=== PATIENT | female | born 1995 | race African-American/Black ===

== ENCOUNTER 2018-06-28 11:35 | Emergency (ER) | payer BC, SELFPAY ==
[2018-06-28 12:47] LABS: Absolute Lymphocytes (CBC) 1.1 K/uL (0.7-4.9); Absolute Neutrophil 16.5 K/uL (1.8-8.0); Basophils % 0.3 % (0-1.3); Eosinophils % 0.1 % (0-4.4); Hematocrit 43.2 % (36.0-45.0); Lymphocytes % 5.8 % (15.3-44.8); MPV 9.7 fL (7.6-11.3); Monocytes % 5.5 % (3.3-12.3); RBC Red Blood Cell Count 4.67 M/uL (3.86-4.86)
[2018-06-28] MEDS ORDERED: NA CHLORIDE 0.9% 1,000 ML ONE ×2 (12:48→16:08)
[2018-06-28] MEDS ORDERED: DEXAMETHASONE 4 MG/ML VIAL ONE (12:48)
[2018-06-28 12:54] LABS: Potassium 3.6 mmol/L (3.5-5.1)
[2018-06-28 13:10] LABS: Blood Morphology Comment NOT SEEN (NOT SEEN); Platelet Estimate ADEQ
[2018-06-28] MEDS ORDERED: IBUPROFEN 200 MG TAB PO ONE (13:30)
--- NOTE | 2018-06-28 13:39 | RAD REPORT ---
EXAM DESCRIPTION: CT - Soft Tissue Neck W/Contr - 06/28/2018 1:07 pm CLINICAL HISTORY: Sore throat, neck pain TECHNIQUE: During dynamic enhancement using 100 milliliters nonionic IV contrast, axial 5 millimeter thick images of the neck were obtained. All CT scans are performed using dose optimization technique as appropriate and may include automated exposure control or mA/KV adjustment according to patient size. FINDINGS: Intracranial portion the examination is unremarkable. No globe or orbital content abnormal ity. Mastoid air cells and paranasal sinuses are clear. Adenoid tissue is prominent but without focal abnormality. Left tonsil is not outside of normal range . Right tonsil is abnormal. There is edema and enlargement of the right tonsil involves the right-side of the soft palate. In the deep lateral margin of the tonsil there is a 13 millimeter oval low-densit y mass collection. Posteriorly and inferiorly in the enlarged right tonsil there are 13 millimeter an d 18 millimeter round low-density collections. These 3 collections are likely part of a single large a amorphous shaped collection. Soft tissue edema and enlargement of the tonsil extends inferiorly into the right valleculae and piri form sinus. There is enlargement and edema of the right-side epiglottis. There is soft tissue swellin g M edema that continues inferiorly to abut the right-side of the vocal cords. No airway compromise. No focal tongue base abnormality. Enlarged bilateral reactive cervical lymph nodes are present 2 cm in size. The parotid, submandibular and thyroid gland tissue show no acute findings. No vascular or bone acute finding. IMPRESSION: Large complex right peritonsillar abscess. Multiple abscess collections are present in t he deep lateral right tonsil 13 mm in size and in the posterior inferior tonsil 13 mm and 18 mm in si ze. These are part of an amorphous shaped contiguous abscess. Soft tissue swelling and edema throughout the right-side pharynx that extends from the soft palate to the right-side vocal cord. Epiglottis is involved. Enlarged bilateral cervical lymphadenopathy. No lymph node abscess. No airway compromise.
[2018-06-28] MEDS ORDERED: CLINDAMYCIN 900MG/D5W 900 MG/50 ML IVPB IV ONE (13:57)
[2018-06-28] MEDS ORDERED: CEFTRIAXONE/SWI 1gm 1 GM/10 ML SYR ONE (13:57)
[2018-06-28] MEDS ORDERED: MORPHINE 4 MG/ML SYR ONE ×2 (14:07→16:08)
[2018-06-28] MEDS ORDERED: ONDANSETRON 4 MG/2 ML VIAL ONE (14:08)
[2018-06-28 14:26] LABS: Urine Blood NEGATIVE (NEG); Urine Glucose NEGATIVE (NEG); Urine Protein 2+ (NEG); Urine pH 5.5 (5.0-7.0)
--- NOTE | 2018-06-28 14:32 | ER ---
Nurse's Notes [facility] Name: Ellen Alves Age: 22 yrs Sex: Female : 1995 Arrival Date: 06/28/2018 Time: 11:38 Bed 23 Private MD: Diagnosis: Peritonsillar abscess;Influenza due to certain identified influenza viruses Presentation: 06/28 11:43 Presenting complaint: Patient states: flu like symptoms since Saturday. c/o earache, ch sore throat, cant drink or eat. Transition of care: patient was not received from another setting of care. Onset of symptoms was June 25, 2018. Risk Assessment: Do you want to hurt yourself or someone else? Patient reports no desire to harm self or others. Initial Sepsis Screen: Does the patient meet any 2 criteria? No. Patient's initial sepsis screen is negative. Does the patient have a suspected source of infection? No. Patient's initial sepsis screen is negative. Note urgent care gave antibiotic shot and lido to gargle for pain yesterday. Care prior to arrival: None. 11:43 Method Of Arrival: Ambulatory 11:43 Acuity: JEAN 4 ch Triage Assessment: 11:44 General: Appears in no apparent distress. uncomfortable, Behavior is calm, cooperative, ch appropriate for age. Pain: Complains of pain in right ear and throat Pain currently is 10 out of 10 on a pain scale. EENT: Oral mucosa is moist. Throat is reddened has enlarged tonsils bilaterally with gag reflex present, Reports difficulty swallowing nasal congestion nasal discharge pain when swallowing since in ear. Respiratory: Airway is patent Trachea Respiratory effort is even, unlabored. Historical: - Allergies: 11:44 No Known Allergies; ch - PMHx: 11:44 None; ch - PSHx: 11:44 None; ch - Immunization history:: Adult Immunizations up to date, Flu vaccine is not up to date. - Social history:: Smoking status: Patient/guardian denies using tobacco, Patient uses alcohol, weekly. Patient/guardian denies using street drugs. - Ebola Screening: : Patient negative for fever greater than or equal to 101.5 degrees Fahrenheit, and additional compatible Ebola Virus Disease symptoms Patient denies exposure to infectious person Patient denies travel to an Ebola-affected area in the 21 days before illness onset No symptoms or risks identified at this time. Screenin:23 Abuse screen: Denies threats or abuse. Denies injuries from another. Nutritional ss screening: No deficits noted. Tuberculosis screening: No symptoms or risk factors identified. Never had TB. Fall Risk None identified. Assessment: 11:55 General: Appears uncomfortable, ill, Behavior is calm, cooperative, quiet, Reports ss chills for 2-3 days, fever for 2-3 days, feeling ill for 2-3 days, fatigue for 2-3 days. Pain: Complains of pain in right ear and throat Pain currently is 10 out of 10 on a pain scale. Quality of pain is described as burning, tender, Pain began 2-3 days ago. Is continuous. Neuro: Level of Consciousness is awake, alert, obeys commands, Oriented to person, place, time, situation. Cardiovascular: Capillary refill < 3 seconds is brisk in bilateral fingers. Respiratory: Airway is patent Respiratory effort is even, unlabored, Respiratory pattern is regular, symmetrical. GI: Patient currently denies abdominal pain, diarrhea, nausea, vomiting. : No signs and/or symptoms were reported regarding the genitourinary system. EENT: Nares are clear Oral mucosa is moist. Throat is reddened has enlarged tonsils on right. Derm: Skin is intact, is healthy with good turgor, Skin is dry, Skin is pink, warm \T\ dry. normal. Musculoskeletal: Circulation, motion, and sensation intact. Range of motion: intact in all extremities. 13:20 Reassessment: Patient appears in no apparent distress at this time. No changes from ss previously documented assessment. Pt reports increase in chills, temperature rechecked. Motrin ordered and administered. 15:42 Reassessment: Patient appears in no apparent distress at this time. Patient and/or ss family updated on plan of care and expected duration. Pain level reassessed. Patient is alert, oriented x 3, equal unlabored respirations, skin warm/dry/pink. Patient states feeling better. Patient states symptoms have improved. 15:48 Reassessment: awaiting room assignment from receiving facility. ss 16:15 Reassessment: attempted to call report to receiving facility. Staff reports that they ss will call back as they are unable to reach receiving nurse. 18:13 Reassessment: Patient appears in no apparent distress at this time. No changes from la1 previously documented assessment. Patient and/or family updated on plan of care and expected duration. Pain level reassessed. Patient is alert, oriented x 3, equal unlabored respirations, skin warm/dry/pink. Vital Signs: 11:44 BP 124 / 86; Pulse 102; Resp 16; Temp 99.7; Pulse Ox 99% on R/A; Weight 78.02 kg; ch Height 5 ft. 6 in. (167.64 cm); Pain 10/10; 13:19 Temp 100.6(O); lt1 16:03 BP 102 / 64; Pulse 86; Resp 18; Pulse Ox 98% on R/A; la1 16:16 Temp 98.5(O); ss 16:16 Pain 10/10; ss 18:13 BP 104 / 67; Pulse 72; Resp 18; Pulse Ox 98% on R/A; la1 11:44 Body Mass Index 27.76 (78.02 kg, 167.64 cm) ch 16:16 pt reports her throat is still 10/10, but reports other pain such as her ears do not ss hurt at all anymore. Additional dose of morphine ordered and administered. ED Course: 11:38 Patient arrived in ED. as 11:39 Michelle Alves FNP-C is PHCP. kb 11:39 Osiel Gómez MD is Attending Physician. kb 11:44 Triage completed. ch 11:44 Arm band placed on left wrist. Patient placed in waiting room. ch 11:52 Jessica Perales, RN is Primary Nurse. ss 12:20 Radiology exam delayed due to test not completed at this time. IV insertion bq attempt and/or patient not having appropriate IV at this time. 12:20 Note: JESSICA TO NOTIFY CT WHEN PTS READY. bq 12:35 Inserted saline lock: 22 gauge in left wrist, using aseptic technique. Patient ss maintains SpO2 saturation greater than 95% on room air. 13:07 CT Soft Tissue Neck W/contr In Process Unspecified. EDMS 13:07 CT completed. Patient tolerated procedure well. Patient moved back from CT. kw1 13:23 Patient has correct armband on for positive identification. Bed in low position. Call ss light in reach. 13:54 initiated a transfer with Shira at the [facility] transfer center. eb 14:[address] Thomas the ENT manager marketing communications for [facility] with Michelle CARRERA for patient eb transfer consultation. 14:[address] Byrd the Hospitalist manager marketing communications with Michelle CARRERA for patient transfer eb consultation. 14:37 Shira from [facility] called to let us know that they are moving patients around so eb this patient can have an isolation room/ once she gets the room assignment she will call with admin approval. 16:02 administrative approval given by Shira Jean, Jaun Gastelum has accepted the eb patient in transfer/ patient going to [address] [place] [address]/ report to be called to [phone]. 18:14 No provider procedures requiring assistance completed. Patient transferred, IV remains la1 in place. Administered Medications: 12:47 Drug: Decadron - Dexamethasone 10 mg Route: IVP; Site: left antecubital; ss 13:20 Follow up: Response: No adverse reaction ss 12:48 Drug: NS 0.9% 1000 ml Route: IV; Rate: 1000 ml; Site: left wrist; ss 14:00 Follow up: IV Status: Completed infusion ss 13:25 Drug: Motrin 600 mg Route: PO; ss 14:04 Follow up: Response: No adverse reaction la1 13:40 Drug: Rocephin 1 grams Route: IV; Rate: calculated rate; Site: left antecubital; la1 14:05 Follow up: IV Status: Completed infusion la1 14:01 Drug: Clindamycin 900 mg Route: IVPB; Infused Over: 30 mins; Site: left antecubital; la1 14:26 Follow up: IV Status: Completed infusion la1 14:01 Drug: morphine 4 mg Route: IVP; Site: left antecubital; la1 14:05 Follow up: Response: No adverse reaction; Pain is decreased la1 14:01 Drug: Zofran 4 mg Route: IVP; Site: left antecubital; la1 14:05 Follow up: Response: No adverse reaction la1 16:02 Drug: NS 0.9% 1000 ml Route: IV; Rate: 125 ml/hr; Site: left antecubital; la1 18:13 Follow up: IV Status: Infusion continued upon transfer la1 16:02 Drug: morphine 4 mg Route: IVP; Site: left antecubital; la1 18:14 Follow up: Response: No adverse reaction; Pain is decreased la1 Outcome: 14:31 ER care complete, transfer ordered by MD. hunter 18:14 Transferred by ground EMS to [facility], [facility], Transfer form completed. la1 18:14 Condition: stable 18:14 Instructed on the need for transfer. 18:14 Patient left the ED. la1 Signatures: Dispatcher [employer] EDMS Michelle Alves, MANAGER OF ORGANIZATIONAL DEVELOPMENT-C MANAGER OF ORGANIZATIONAL DEVELOPMENT-Marlen Strong, RN RN Grecia Reddy Amelia as Smirch, Shelby, RN RN Juan Hassan RN RN la1 Ashlyn Ortiz Elizabeth eb Tran, Leah [facility] Corrections: (The following items were deleted from the chart) 13:23 11:55 General: Appears uncomfortable, ill, Behavior is calm, cooperative, quiet, ss
--- NOTE | 2018-06-28 14:32 | EDPHYS ---
Physician Documentation [facility] Name: Ellen Alves Age: 22 yrs Sex: Female : 1995 Arrival Date: 06/28/2018 Time: 11:38 Bed 23 Private MD: ED Physician Osiel Gómez HPI: 06/28 12:15 This 22 yrs old Black Female presents to ER via Ambulatory with complaints of Ear Pain, kb Sore Throat. 12:16 The patient presents with sore throat. The patient describes throat pain as constant. kb Onset: The symptoms/episode began/occurred 5 day(s) ago. Severity of symptoms: At their worst the symptoms were moderate, in the emergency department the symptoms are unchanged. Modifying factors: The symptoms are alleviated by nothing, the symptoms are aggravated by swallowing, Patient's oral intake status: limited fluid intake, limited food intake. Associated signs and symptoms: Pertinent positives: earache, fever, Sore throat. The patient has not experienced similar symptoms in the past. The patient has been recently seen at an urgent care, yesterday. Pt reports sore throat, right ear pain and fever. Went to yesterday, tested negative for flu and strep, was told she either had the mumps or pharyngitis and was given a shot of antibiotics. . Historical: - Allergies: 11:44 No Known Allergies; ch - PMHx: 11:44 None; ch - PSHx: 11:44 None; ch - Immunization history:: Adult Immunizations up to date, Flu vaccine is not up to date. - Social history:: Smoking status: Patient/guardian denies using tobacco, Patient uses alcohol, weekly. Patient/guardian denies using street drugs. - Ebola Screening: : Patient negative for fever greater than or equal to 101.5 degrees Fahrenheit, and additional compatible Ebola Virus Disease symptoms Patient denies exposure to infectious person Patient denies travel to an Ebola-affected area in the 21 days before illness onset No symptoms or risks identified at this time. ROS: 12:11 Neck: Negative for injury, pain, and swelling, Cardiovascular: Negative for chest pain, kb palpitations, and edema, Respiratory: Negative for shortness of breath, cough, wheezing, and pleuritic chest pain, Abdomen/GI: Negative for abdominal pain, nausea, vomiting, diarrhea, and constipation, MS/Extremity: Negative for injury and deformity, Skin: Negative for injury, rash, and discoloration, Neuro: Negative for headache, weakness, numbness, tingling, and seizure. 12:11 Constitutional: Positive for fever, Negative for body aches, chills, fatigue, malaise, poor PO intake, weight loss. 12:11 ENT: Positive for ear pain, sore throat. Exam: 12:12 Constitutional: This is a well developed, well nourished patient who is awake, alert, kb and in no acute distress. Head/Face: Normocephalic, atraumatic. Neck: Trachea midline, no thyromegaly or masses palpated, and no cervical lymphadenopathy. Supple, full range of motion without nuchal rigidity, or vertebral point tenderness. No Meningismus. Chest/axilla: Normal chest wall appearance and motion. Nontender with no deformity. No lesions are appreciated. Cardiovascular: Regular rate and rhythm with a normal S1 and S2. No gallops, murmurs, or rubs. Normal PMI, no JVD. No pulse deficits. Respiratory: Lungs have equal breath sounds bilaterally, clear to auscultation and percussion. No rales, rhonchi or wheezes noted. No increased work of breathing, no retractions or nasal flaring. Abdomen/GI: Soft, non-tender, with normal bowel sounds. No distension or tympany. No guarding or rebound. No evidence of tenderness throughout. Skin: Warm, dry with normal turgor. Normal color with no rashes, no lesions, and no evidence of cellulitis. MS/ Extremity: Pulses equal, no cyanosis. Neurovascular intact. Full, normal range of motion. Neuro: Awake and alert, GCS 15, oriented to person, place, time, and situation. Cranial nerves II-XII grossly intact. Motor strength 5/5 in all extremities. Sensory grossly intact. Cerebellar exam normal. Normal gait. 12:12 ENT: External ear(s): are unremarkable, Ear canal(s): are normal, TM's: fluid levels, on the left, Nose: is normal, Mouth: is normal, Posterior pharynx: Airway: normal, no evidence of obstruction, Tonsils: enlarged on the right, with erythema, Uvula: normal, midline, swelling, that is moderate, erythema, that is marked, slight trismus . Vital Signs: 11:44 BP 124 / 86; Pulse 102; Resp 16; Temp 99.7; Pulse Ox 99% on R/A; Weight 78.02 kg; ch Height 5 ft. 6 in. (167.64 cm); Pain 10/10; 13:19 Temp 100.6(O); lt1 16:03 BP 102 / 64; Pulse 86; Resp 18; Pulse Ox 98% on R/A; la1 16:16 Temp 98.5(O); ss 16:16 Pain 10/10; ss 18:13 BP 104 / 67; Pulse 72; Resp 18; Pulse Ox 98% on R/A; la1 11:44 Body Mass Index 27.76 (78.02 kg, 167.64 cm) ch 16:16 pt reports her throat is still 10/10, but reports other pain such as her ears do not ss hurt at all anymore. Additional dose of morphine ordered and administered. MDM: 11:47 Patient medically screened. [facility] 12:12 Data reviewed: vital signs, nurses notes. Data interpreted: Pulse oximetry: on room air kb is 99 %. Interpretation: normal. 13:45 Counseling: I had a detailed discussion with the patient and/or guardian regarding: the kb historical points, exam findings, and any diagnostic results supporting the discharge/admit diagnosis, lab results, radiology results, the need to transfer to another facility, [facility] does not immediately have the required specialist. 14:31 ED course: Pt accepted by Dr Thomas, ENT, and Dr Byrd, hospitalist, at [facility]. kb 06/28 11:43 Order name: Flu; Complete Time: 12:21 ch 06/28 11:43 Order name: Strep; Complete Time: 12:21 ch 06/28 12:04 Order name: CBC with Diff; Complete Time: 13:11 kb 06/28 12:04 Order name: Basic Metabolic Panel; Complete Time: 12:56 kb 06/28 12:04 Order name: [place] Screen Profile; Complete Time: 12:53 kb 06/28 12:20 Order name: Throat Culture EDMS 06/28 12:04 Order name: CT Soft Tissue Neck W/contr; Complete Time: 13:40 kb 06/28 12:59 Order name: Urine Dipstick--Ancillary (enter results); Complete Time: 14:28 eb 06/28 12:59 Order name: Urine --Ancillary (enter results); Complete Time: 14:28 eb 06/28 13:10 Order name: Manual Differential; Complete Time: 13:11 EDMS 06/28 12:04 Order name: IV Start; Complete Time: 12:35 kb Administered Medications: 12:47 Drug: Decadron - Dexamethasone 10 mg Route: IVP; Site: left antecubital; ss 13:20 Follow up: Response: No adverse reaction ss 12:48 Drug: NS 0.9% 1000 ml Route: IV; Rate: 1000 ml; Site: left wrist; ss 14:00 Follow up: IV Status: Completed infusion ss 13:25 Drug: Motrin 600 mg Route: PO; ss 14:04 Follow up: Response: No adverse reaction la1 13:40 Drug: Rocephin 1 grams Route: IV; Rate: calculated rate; Site: left antecubital; la1 14:05 Follow up: IV Status: Completed infusion la1 14:01 Drug: Clindamycin 900 mg Route: IVPB; Infused Over: 30 mins; Site: left antecubital; la1 14:26 Follow up: IV Status: Completed infusion la1 14:01 Drug: morphine 4 mg Route: IVP; Site: left antecubital; la1 14:05 Follow up: Response: No adverse reaction; Pain is decreased la1 14:01 Drug: Zofran 4 mg Route: IVP; Site: left antecubital; la1 14:05 Follow up: Response: No adverse reaction la1 16:02 Drug: NS 0.9% 1000 ml Route: IV; Rate: 125 ml/hr; Site: left antecubital; la1 18:13 Follow up: IV Status: Infusion continued upon transfer la1 16:02 Drug: morphine 4 mg Route: IVP; Site: left antecubital; la1 18:14 Follow up: Response: No adverse reaction; Pain is decreased la1 Disposition: 06/28/18 14:31 Transfer ordered to [facility]. Diagnosis are Peritonsillar abscess, Influenza due to certain identified influenza viruses. - Reason for transfer: Higher level of care. - Accepting physician is Rochelle. - Condition is Stable. - Problem is new. - Symptoms are unchanged. Addendum: 06/30/2018 09:30 Co-signature as Attending Physician, Osiel Gómez MD I agree with the assessment and c mcgee plan of care. Signatures: Dispatcher [employer] EDMichelle Campos, EMMANUEL-Lisa VACUUM PAN OPERATOR-Marlen Strong, RN Osiel Arevalo ch, MD MD cha Smirch, Shelby, BELINDA TREVINO ss Juan Hassan RN RN la1 Corrections: (The following items were deleted from the chart) 06/28 13:56 12:12 ENT: External ear(s): are unremarkable, Ear canal(s): are normal, TM's: fluid kb levels, on the left, Nose: is normal, Mouth: is normal, Posterior pharynx: Airway: normal, no evidence of obstruction, Tonsils: enlarged on the right, with erythema, Uvula: normal, midline, swelling, that is moderate, erythema, that is marked, kb 13:56 12:16 Onset: The symptoms/episode began/occurred yesterday, kb kb 18:14 14:31 06/28/2018 14:31 Transfer ordered to [facility]. Diagnosis is la1 Peritonsillar abscess; Influenza due to certain identified influenza viruses. Reason for transfer: Higher level of care. Accepting physician is Rochelle. Condition is Stable. Problem is new. Symptoms are unchanged. kb
== END 2018-06-28 18:14 | disposition short-term general hospital (02) ==
LOC: ER 11:35
DX: J36 Peritonsillar abscess (principal); J10.1 Influenza due to other identified influenza virus with other respiratory manifestations
CPT/HCPCS: 36415; 70491; 80048; 81003; 81025; 85025; 86308; 87070; 87081; 87804; 96361; 96365; 96375; 99285; J0696; J2405; J7030; Q9967